=== PATIENT | female | born 1955 | race Caucasian/White ===

== ENCOUNTER 2018-09-08 07:30 | Inpatient (IN) | payer MEDICAID ==
[2018-09-03 08:51] VITALS: BP 101/68
[~2018-09-08] VITALS: Ht 158.8 cm; Wt 88.2 kg
[~2018-09-08 07:30] MED LIST: BUTA-177 PO; CITA20TA6 PO; CYCL-259 PO; LEVO50TA5 PO; NAPR220C2 PO; SENN1TAB67 PO
[2018-09-08] MEDS ORDERED: LACTATED RINGERS 1,000 ML IV SCH (12:45)
[2018-09-08 13:16] LABS: INTERNATIONAL NORMALIZED RATIO 1.08 (0.93-1.1); PROTHROMBIN TIME 11.3 Seconds (9.6-11.5)
[2018-09-08] MEDS ORDERED: SUGAMMADEX 200 MG/2 ML IVPush ONE (15:12)
[2018-09-08] MEDS ORDERED: ROCURONIUM 10MG/ML,5ML ONE (15:20)
[2018-09-08] MEDS ORDERED: CEFOTETAN 1 GM ONE (15:20)
[2018-09-08] MEDS ORDERED: METOPROLOL 1 MG/ML, 5ML ONE (15:20)
[2018-09-08] MEDS ORDERED: SUCCINYLCHOLINE 20 MG/ML, 10ML ONE (15:20)
[2018-09-08] MEDS ORDERED: PROPOFOL 10 MG/ML, 20ML ONE (15:20)
[2018-09-08] MEDS ORDERED: FENTANYL PF 100 MCG/2ML ONE ×3 (15:26→17:26)
[2018-09-08] MEDS ORDERED: HEPARIN 1,000 UNITS/ML, 10ML ONE (15:57)
[2018-09-08] MEDS ORDERED: ALBUTEROL/IPRATROPIUM 2.5MG/0.5MG, 3 ML ONE (17:21)
[2018-09-08] MEDS ORDERED: HYDROmorphone 1 MG/ML, 1ML VIAL ONE (17:26)
[2018-09-08] MEDS: FENTANYL PF 100 MCG/2ML IV PRN ×2 (17:30→17:53)
[2018-09-08] MEDS: HYDROmorphone 2 MG/ML, 1ML IVPush PRN ×3 (17:34→18:09)
[2018-09-08] MEDS ORDERED: METOCLOPRAMIDE 5 MG/ML, 2ML IV PRN (18:00)
[2018-09-08] MEDS ORDERED: ACETAMINOPHEN 325 MG TABLET PO PRN (18:00)
[2018-09-08] MEDS ORDERED: MORPHINE SULFATE 4 MG/ML, 1ML IVPush PRN (18:00)
[2018-09-08] MEDS ORDERED: OXYcodone 5 MG/5 ML ORAL.SOL UDC PO PRN (18:00)
[2018-09-08] MEDS ORDERED: KETOROLAC 30 MG/1 ML IM PRN ×2 (18:00)
[2018-09-08] MEDS ORDERED: HYDROcodone/APAP 7.5-325MG/15ML UDC PO PRN (18:00)
[2018-09-08] MEDS ORDERED: KETOROLAC 30 MG/1 ML IV SCH (18:00)
[2018-09-08] MEDS ORDERED: KETOROLAC 30 MG/1 ML IV PRN ×2 (18:00)
[2018-09-08] MEDS ORDERED: MEPERIDINE/PF 25MG/0.5ML IVPush PRN (18:00)
[2018-09-08] MEDS ORDERED: HALOPERIDOL 5 MG/ML ONE (18:03)
[2018-09-08] MEDS ORDERED: HALOPERIDOL 5 MG/ML IV PRN (18:30)
[2018-09-09] VITALS: BP 140/74
[2018-09-09] MEDS: POTASSIUM CHLORIDE 20 MEQ in D5%-0.45% NACL 1,000 ML IV SCH ×2 (01:23→19:52)
[2018-09-09 03:55] VITALS: BP 149/82
[2018-09-09 05:43] LABS: BASOPHILS # (AUTO) 0.02 x10^3/uL (0-0.1); BASOPHILS % (AUTO) 0 % (0-1); EOSINOPHILS # (AUTO) 0.11 x10^3/uL (0-0.4); EOSINOPHILS % (AUTO) 2 % (1-7); LYMPHOCYTES # (AUTO) 0.47 x10^3/uL (1-3.4); LYMPHOCYTES % (AUTO) 6 % (22-44); MD NO; MEAN CORPUSCULAR HEMOGLOBIN 29.9 pg (27.0-34.8); MEAN CORPUSCULAR HGB CONC 33.7 g/dL (32.4-35.8); MEAN CORPUSCULAR VOLUME 88.7 fL (80-100); MEAN PLATELET VOLUME 8.7 fL (7.4-10.4); MONOCYTES % (AUTO) 4 % (2-9); NEUTROPHILS # (AUTO) 6.62 x10^3/uL (1.8-6.8); NEUTROPHILS % (AUTO) 88 % (42-75); PLATELET COUNT 204 x10^3/uL (130-400); RED CELL DISTRIBUTION WIDTH 14.8 % (9.6-15.2)
[2018-09-09 05:54] LABS: CHLORIDE 108 mmol/L (98-107)
[2018-09-09 05:59] LABS: ALBUMIN 3.5 g/dL (3.4-5.0); ANION GAP 6 mmol/L (5-15); CALCIUM 8.3 mg/dL (8.5-10.1)
[2018-09-09 06:55] VITALS: BP 131/72
[2018-09-09] MEDS: METOCLOPRAMIDE 5 MG/ML, 2ML IV SCH ×3 (08:00→19:41)
[2018-09-09] MEDS: FAMOTIDINE 20 MG TABLET PO SCH (09:18)
[2018-09-09 10:54] VITALS: BP 133/81
[2018-09-09 12:47] VITALS: BP 150/85
[2018-09-09] MEDS ORDERED: ONDANSETRON 4 MG TABLET ONE (15:01)
[2018-09-09] MEDS: ONDANSETRON 2MG/ML, 2ML IVPush PRN (15:03)
[2018-09-09 19:18] VITALS: BP 137/84
[2018-09-09] MEDS ORDERED: BUTALB/APAP/CAFFEINE 50MG/325MG/40MG PO PRN (19:30)
[2018-09-09] MEDS ORDERED: NAPROXEN 250 MG TABLET PO PRN (19:30)
[2018-09-09] MEDS ORDERED: CYCLOBENZAPRINE 10 MG TABLET PO PRN (19:30)
[2018-09-09] MEDS ORDERED: SENNA/DOCUSATE TABLET PO PRN (19:30)
[2018-09-10 00:50] VITALS: BP 141/87
[2018-09-10] MEDS: METOCLOPRAMIDE 5 MG/ML, 2ML IV SCH ×4 (02:00→20:44)
[2018-09-10 04:26] LABS: BASOPHILS # (AUTO) 0.03 x10^3/uL (0-0.1); BASOPHILS % (AUTO) 0 % (0-1); EOSINOPHILS % (AUTO) 0 % (1-7); LYMPHOCYTES # (AUTO) 0.68 x10^3/uL (1-3.4); LYMPHOCYTES % (AUTO) 9 % (22-44); MD NO; MEAN CORPUSCULAR HEMOGLOBIN 29.7 pg (27.0-34.8); MEAN CORPUSCULAR HGB CONC 33.3 g/dL (32.4-35.8); MEAN CORPUSCULAR VOLUME 89.1 fL (80-100); MEAN PLATELET VOLUME 8.7 fL (7.4-10.4); MONOCYTES # (AUTO) 0.64 x10^3/uL (0.2-0.8); MONOCYTES % (AUTO) 8 % (2-9); NEUTROPHILS # (AUTO) 6.44 x10^3/uL (1.8-6.8); NEUTROPHILS % (AUTO) 83 % (42-75); PLATELET COUNT 185 x10^3/uL (130-400); RED BLOOD COUNT 4.02 x10^6/uL (3.82-5.3); RED CELL DISTRIBUTION WIDTH 15.3 % (9.6-15.2)
[2018-09-10 04:37] LABS: ANION GAP 7 mmol/L (5-15); CALCIUM 8.3 mg/dL (8.5-10.1); CHLORIDE 110 mmol/L (98-107); CREATININE 0.82 mg/dL (0.55-1.02)
[2018-09-10] MEDS: POTASSIUM CHLORIDE 20 MEQ in D5%-0.45% NACL 1,000 ML IV SCH (05:49)
[2018-09-10] MEDS: LEVOTHYROXINE 75 MCG TABLET PO SCH (05:49)
[2018-09-10 07:05] VITALS: BP 106/71
[2018-09-10] MEDS: FAMOTIDINE 20 MG TABLET PO SCH ×4 (08:22→20:46)
[2018-09-10] MEDS: CITALOPRAM 20 MG TABLET PO SCH (08:22)
[2018-09-10] MEDS: ONDANSETRON 2MG/ML, 2ML IVPush PRN ×2 (08:37→13:05)
[2018-09-10] MEDS ORDERED: POTASSIUM CHLORIDE 20 MEQ in D5%-0.45% NACL 1,000 ML IV SCH (09:00)
[2018-09-10] MEDS ORDERED: CALCIUM CARBONATE 500 MG TAB.CHEW PO PRN (09:30)
[2018-09-10 15:39] VITALS: BP 161/83
[2018-09-10 20:40] VITALS: BP 154/80
[2018-09-11 01:15] VITALS: BP 130/82
[2018-09-11] MEDS: METOCLOPRAMIDE 5 MG/ML, 2ML IV SCH ×3 (01:39→13:44)
[2018-09-11] MEDS: LEVOTHYROXINE 75 MCG TABLET PO SCH (03:58)
[2018-09-11] MEDS: CITALOPRAM 20 MG TABLET PO SCH (08:18)
[2018-09-11] MEDS: FAMOTIDINE 20 MG TABLET PO SCH (08:18)
[2018-09-11] MEDS ORDERED: POTASSIUM CHLORIDE 20 MEQ in D5%-0.45% NACL 1,000 ML IV SCH (09:00)
[2018-09-11 09:50] VITALS: BP 149/86
[2018-09-11] MEDS ORDERED: METO10TA82 PO (11:46)
[2018-09-11] MEDS ORDERED: OXYC-302 PO (11:46)
[2018-09-11] MEDS ORDERED: ONDA4TAB7 PO (11:47)
[2018-09-11 12:59] VITALS: BP 137/83
== END 2018-09-11 16:15 | disposition home or self-care (01) | DRG 742 ==
LOC: ORIP 12:13 → 4NOR 19:10 → 3NW 09-09 10:38
PROVIDERS: ADMIT Specialist; ATTEND Specialist
PROC: 0UT70ZZ Resection of Bilateral Fallopian Tubes, Open Approach (ICD-10-PCS; 2018-09-08)
PROC: 0U910ZZ Drainage of Left Ovary, Open Approach (ICD-10-PCS; 2018-09-08)
PROC: 0UT20ZZ Resection of Bilateral Ovaries, Open Approach (ICD-10-PCS; principal; 2018-09-08 14:00)
DX: D27.1 Benign neoplasm of left ovary (principal); K56.7 Ileus, unspecified; G43.909 Migraine, unspecified, not intractable, without status migrainosus; F32.9 Major depressive disorder, single episode, unspecified; E78.5 Hyperlipidemia, unspecified; N18.3 Chronic kidney disease, stage 3 (moderate); N70.11 Chronic salpingitis; E03.9 Hypothyroidism, unspecified; I48.91 Unspecified atrial fibrillation; E66.9 Obesity, unspecified; Z68.35 Body mass index [BMI] 35.0-35.9, adult; I25.2 Old myocardial infarction
CPT/HCPCS: 36415; J3490; 80048; 82040; 85025; 85610; 85730; 86850; 86900; 86923; 88112; 88305; 88307; 88331; G0378; J1170; J1644; J1885; J2270; J2405; J2704; J3010; J3480; C1765; J0330; J1630; J2765; J7120